=== PATIENT | female | born 1980 | race Caucasian/White ===

== ENCOUNTER 2019-06-02 20:53 | Emergency (ER) | payer OTHER ==
[~2019-06-02] VITALS: Ht 167.6 cm; Wt 59.0 kg
[2019-06-02] MEDS ORDERED: ASPIRIN 81 MG TAB.CHEW PO ONE (22:30)
[2019-06-02 22:47] LABS: BASOPHILS % (AUTO) 0.6 % (0.0-2.0); EOSINOPHILS # (AUTO) 0.1 K/uL (0.0-0.7); EOSINOPHILS % (AUTO) 1.4 % (0.0-7.0); HEMATOCRIT 39.1 % (31.2-41.9); HEMOGLOBIN 13.1 g/dL (10.9-14.3); LYMPHOCYTES # (AUTO) 1.7 K/uL (20.0-40.0); LYMPHOCYTES % (AUTO) 26.1 % (20.5-51.5); MEAN CORPUSCULAR HEMOGLOBIN 30.1 uug (24.7-32.8); MEAN CORPUSCULAR HGB CONC 34 g/dL (32.3-35.6); MEAN CORPUSCULAR VOLUME 89.6 fL (75.5-95.3); MONOCYTES # (AUTO) 0.5 K/uL (2.0-10.0); MONOCYTES % (AUTO) 7.1 % (0.0-11.0); NEUTROPHILS # (AUTO) 4.2 K/uL (1.8-8.9); NEUTROPHILS % (AUTO) 64.8 % (38.5-71.5); PLATELET COUNT (AUTO) 288 K/uL (179-408); RED BLOOD CELL COUNT(AUTO) 4.37 MIL/uL (3.63-4.92); WHITE BLOOD COUNT (AUTO) 6.6 K/uL (3.8-11.8)
[2019-06-02] MEDS ORDERED: ASPIRIN 81 MG TAB.CHEW ONE (22:54)
[2019-06-02 22:56] LABS: CREATININE 0.7 mg/dL (0.6-1.3); POTASSIUM 3.8 mmol/L (3.5-5.1)
[2019-06-02 23:12] LABS: BILIRUBIN,DIRECT 0.1 mg/dL (0.0-0.2); BILIRUBIN,TOTAL 0.3 mg/dL (0.2-1.0); TOTAL PROTEIN, SERUM 7.2 g/dL (6.4-8.2)
[2019-06-02 23:30] LABS: *MONOTEST NEGATIVE (NEGATIVE)
--- NOTE | 2019-06-02 23:50 | NUR ---
IV removed. Catheter intact and site benign. Pressure and 4x4 gauze applied to site. No bleeding noted.
--- NOTE | 2019-06-02 23:53 | NUR ---
Patient discharged to home in stable conditon. Written and verbal after care instructions given. Patient verbalizes understanding of instructions. Pt walked out of ER in stable gait. No acute distress noted. Vital signs stable. Respirations even + unlabored.
[2019-06-02 23:55] VITALS: BP 114/72
== END 2019-06-02 23:55 | disposition home or self-care (01) ==
LOC: ER 20:53
DX: R07.0 Pain in throat (principal); R07.89 Other chest pain
CPT/HCPCS: 36415; 70030-TC; 71045; 84443; 85025; 85730; 86308; 86403; 87070; 87400; 93005; A4663

== ENCOUNTER 2019-06-30 10:58 | Emergency (ER) | payer OTHER ==
[~2019-06-30] VITALS: Ht 167.6 cm; Wt 58.1 kg
[2019-06-30 11:26] LABS: BASOPHILS % (AUTO) 0.6 % (0.0-2.0); EOSINOPHILS % (AUTO) 0.8 % (0.0-7.0); HEMATOCRIT 38.1 % (31.2-41.9); HEMOGLOBIN 12.9 g/dL (10.9-14.3); LYMPHOCYTES # (AUTO) 1.1 K/uL (20.0-40.0); LYMPHOCYTES % (AUTO) 22.7 % (20.5-51.5); MEAN CORPUSCULAR HEMOGLOBIN 30.3 uug (24.7-32.8); MEAN CORPUSCULAR HGB CONC 34 g/dL (32.3-35.6); MEAN CORPUSCULAR VOLUME 89.5 fL (75.5-95.3); MONOCYTES # (AUTO) 0.4 K/uL (2.0-10.0); MONOCYTES % (AUTO) 7.2 % (0.0-11.0); NEUTROPHILS # (AUTO) 3.4 K/uL (1.8-8.9); NEUTROPHILS % (AUTO) 68.7 % (38.5-71.5); PLATELET COUNT (AUTO) 266 K/uL (179-408); RED BLOOD CELL COUNT(AUTO) 4.26 MIL/uL (3.63-4.92)
[2019-06-30 11:31] LABS: CREATININE 0.9 mg/dL (0.6-1.3); POTASSIUM 3.6 mmol/L (3.5-5.1)
--- NOTE | 2019-06-30 12:24 | NUR ---
PATIENT WAS SEEN BY MD, LABS, XRAYS COMPLETE. DC, RX AND FOLLOW UP INSTRUCTIONS GIVEN AND EXPLAINED TO PATIENT WHO STATES SHE UNDERSTANDS ALL INSTRUCTIONS.
== END 2019-06-30 12:27 | disposition home or self-care (01) ==
LOC: ER 11:00
DX: R07.9 Chest pain, unspecified (principal); R11.0 Nausea; R42 Dizziness and giddiness; Z88.1 Allergy status to other antibiotic agents
CPT/HCPCS: 36415; 70030-TC; 71045; 85025; 93005; A4663